=== PATIENT | male | born 1965 | race Caucasian/White ===

== ENCOUNTER 2021-11-02 14:21 | Emergency (ER) | payer OTHER, SELFPAY ==
[2021-11-02 14:23] VITALS: BP 91/48; PULSE 71; RESP 16; TEMP 37.1; O2SAT 100
--- NOTE | 2021-11-02 14:36 | ED.BACK ---
HPI - Back Pain/Injury General Chief Complaint: Back Pain/Injury Stated Complaint: back pain Time Seen by Provider: 11/02/21 14:27 History of Present Illness HPI Narrative: Patient is a 56-year-old male here for evaluation of low back pain over the past week. Patient states that the pain is present in his left lower back and will occasionally radiate down his left leg. He has a history of lumbar radiculopathy and states this feels similar. He attempted naproxen today without much relief of his symptoms, states he has not taken any medicine prior to today. He has been walking, notes pain is most severe when changing positions/movement of torso. Denies any saddle anesthesia, incontinence or retention of bowel or bladder, fevers or chills, dysuria or urgency, weakness in legs. Related Data Allergies Allergy/AdvReac Type Severity Reaction Status Date / Time No Known Allergies Allergy Unknown Unverified 02/19/07 16:48 Review of Systems Review of Systems: Gen: Denies fevers or chills Eyes: Denies eye pain or visual change ENT: Denies congestion Respiratory: Denies shortness of breath or cough CV: Denies chest pain or palpitations GI: Denies abdominal pain nausea, emesis or diarrhea : denies burning, urgency, frequency or hematuria Musculoskeletal: Reports back pain. Neuro: Denies numbness, tingling, weakness or focal weakness Skin: Denies rash Except as documented, all other systems reviewed and negative Exam Narrative: APPEARANCE: Standing at bedside. Well appearing, no pain in distress, well-nourished. Head: Normocephalic and atraumatic. EYES: PERRLA/EOMI, conjunctivae clear NOSE: No nasal drainage EARS: External ear normal in appearance THROAT: Oropharynx is clear. Mucous membranes are moist. NECK: Supple. No adenopathy, no masses. RESPIRATORY: Airway patent, respirations nonlabored. Clear to auscultation bilaterally, no rales, rhonchi, wheezing. CARDIOVASCULAR: Regular rate and rhythm without murmurs, rubs, or gallops. ABDOMINAL: Normoactive bowel sounds. Soft, nontender, nondistended. No rebound tenderness or guarding. MUSCULOSKELETAL: no tenderness to palpation along either SI joint. No bony tenderness to palpation along either hip. FROM in bilateral hips without pain. Normal gait. Straight leg raise positive on the left. NEURO: Normal speech. No focal neurologic deficits. SKIN: Skin is warm and dry. No rashes. PSYCHIATRIC: angry affect. Course Vital Signs Vital signs: Vital Signs Temperature 98.8 F 11/02/21 14:23 Pulse Rate 71 11/02/21 14:23 Respiratory Rate 16 11/02/21 14:23 Blood Pressure 91/48 L 11/02/21 14:23 Pulse Oximetry 100 11/02/21 14:23 Oxygen Delivery Room Air 11/02/21 14:23 Temperature 98.8 F 11/02/21 14:23 Pulse Rate 71 11/02/21 14:23 Respiratory Rate 16 11/02/21 14:23 Blood Pressure 91/48 L 11/02/21 14:23 Pulse Oximetry 100 11/02/21 14:23 Oxygen Delivery Room Air 11/02/21 14:23 MDM - Back Pain/Injury MDM Narrative Medical decision making narrative: 56 year old male here for evaluation of right low back pain x 1 week. Ambulatory in ED; SLR positive on the R. This patient presents with back pain most consistent with sciatica. Differential diagnoses includes lumbago versus musculoskeletal spasm / strain. No back pain red flags on history or physical. Presentation not consistent with malignancy (lack of history of malignancy, lack of B symptoms), fracture (no trauma, no bony tenderness to palpation), cauda equina (no bowel or urinary incontinence/retention, no saddle anesthesia, no distal weakness), AAA, viscus perforation, osteomyelitis or epidural abscess (no IVDU, vertebral tenderness), renal colic, pyelonephritis (afebrile, no CVAT, no urinary symptoms). Given the clinical picture, no indication for imaging at this time. He was treated with lidocaine patch, muscle relaxant and ibuprofen with improvement in his symptoms. Advised him to f/u with his PCP next wee
[2021-11-02] MEDS: IBUPROFEN 600 MG TABLET PO (15:08)
[2021-11-02] MEDS: LIDOCAINE 5% PATCH 1 PATCH TRANSDERM (15:08)
[2021-11-02] MEDS: CYCLOBENZAPRINE HCL 10 MG TABLET PO (15:09)
== END 2021-11-02 16:11 | disposition home or self-care (01) ==
PROVIDERS: Emergency Provider General Practice; PCP Family Medicine Adolescent Medicine
DX: S39.012A Strain of muscle, fascia and tendon of lower back, initial encounter (principal); X58.XXXA Exposure to other specified factors, initial encounter
CPT/HCPCS: 99283; A9270

== ENCOUNTER 2022-09-02 07:35 | Outpatient (CLI) | payer OTHER, SELFPAY ==
--- NOTE | ~2022-09-02 | US_ITS ---
US abdomen limited INDICATION: Elevated liver function tests. PROCEDURE: Realtime right upper abdominal ultrasound. COMPARISON: No prior studies for comparison. FINDINGS: The pancreas is normal without focal mass or pancreatic ductal dilation. Liver echotexture is increased, consistent with fatty infiltration. There is normal directional flow in the portal ve in. The gallbladder is normal without stones, gallbladder wall thickening or pericholecystic fluid. Comm on bile duct measures 4.5 mm. No sonographic Arthur's sign. IMPRESSION: 1: Hepatic steatosis. Reviewed, dictated and finalized at location [] IMPRESSION: 1: Hepatic steatosis.
== END 2022-09-02 07:36 | disposition home or self-care (01) ==
PROVIDERS: PCP Family Medicine Adolescent Medicine; Visit Provider Nurse Practitioner
DX: K70.0 Alcoholic fatty liver (principal); R74.8 Abnormal levels of other serum enzymes; F10.29 Alcohol dependence with unspecified alcohol-induced disorder
CPT/HCPCS: 76705

== ENCOUNTER 2022-09-13 01:44 | Day surgery (SDC) | payer OTHER, SELFPAY ==
[2022-09-06 12:33] VITALS: BMI 23.7
--- NOTE | 2022-09-12 13:18 | WPDANESEPPF ---
Anes - Initial Pre Proc Eval Procedure: Operation Date: 09/13/22 12:30 Proposed Procedures p Esophagogastroduodenoscopy & Colonoscopy - Herb Hoang MD Date/Time: 09/12/22 13:18 Surgeon: Herb Hoang MD Pre Op Diagnosis: Alcohol Use Disorder, GERD, neoplasm screening Patient Data Age: 57 Gender: M Height: 1.78 m Weight: 75 kg Allergies Allergy/AdvReac Type Severity Reaction Status Date / Time No Known Allergies Allergy Verified 09/13/22 12:12 Home Medications Medication Instructions Recorded Confirmed Type metoprolol tartrate 50 mg tablet See Rx Instructions .Route 11/12/21 09/06/22 Rx .COMPLEX #180 tabs losartan 25 mg tablet 25 mg PO DAILY #90 tabs 12/07/21 09/06/22 Rx pantoprazole 40 mg tablet,delayed 40 mg PO QAM #90 tabs 06/17/22 09/06/22 Rx release cyclobenzaprine 5 mg tablet 5 mg PO HS PRN muscle spasm #30 08/06/22 09/06/22 Rx tabs lidocaine 5 % topical patch 1 patch topical DAILY #30 ea 08/06/22 09/06/22 Rx (Lidoderm) diazepam 10 mg tablet 10 mg PO QHS PRN Sleep 09/06/22 09/06/22 History Patient hx anesthesia problems: none Family hx anesthesia problems: none Results Review: All pre-operative results and documents have been reviewed as part of the pre-operative evaluation. FORMERLY [facility] Past Medical History Medical History (Updated 09/12/22 @ 13:18 by Salvador Ellison DO) Alcoholic cardiomyopathy Alcoholic fatty liver Atrial fibrillation Colon cancer screening HTN (hypertension) Mild pulmonary hypertension Retching Surgical History Surgical History History of ankle surgery Hx of hernia repair Family History Family History Father Hypertension High cholesterol Diabetes mellitus Malignant neoplasm of prostate Mother Breast cancer Liver cancer Social History Social History Smoking status: Current every day smoker Smoking end date: 03/24/89 Alcohol intake: current Drinks per week: 15 Alcohol use details: 24 beers daily Substance use: current Substance use type: marijuana Last use: 09/06/22 Living arrangements: other Additional living arrangements comments: With partner Occupation/Education: retired Gender identity (if verbalized by the patient): Male Sexual Orientation (if Verbalized by the Patient): Straight or Heterosexual Spiritual care concerns: No Anes - Eval Final PreProcedure Day of Procedure 09/12/22 13:18 Patient weight: normal Heart: regular rate and rhythm Lungs: clear to auscultation and normal air movement Airway: Mallampati scale class II Neurological: alert and oriented Last oral intake: >/= 8 hours ASA classification: IV Emergent: no Anesthetic plan: delay (cancelled due to acute alcohol withdrawal. Discussed patient should have alcohol withdrawal under control before elective procedure. Advised admission to hospital to help with withdrawals) Anesthesia type and monitoring: general GIVS and ETT and standard monitoring Results Review: All pre-operative results and documents have been reviewed as part of the pre-operative evaluation. Informed Consent: The patient's anesthetic plan and its attendant risks and benefits were discussed with the patient/family/POA. Questions were solicited and answers provided to the satisfaction of the patient/family/POA.
[2022-09-13 12:15] VITALS: BP 183/105; PULSE 94; RESP 18; TEMP 36.3; O2SAT 100
[2022-09-13] MEDS: ONDANSETRON INJ 4 MG/2 ML VIAL IV PUSH (12:27)
[2022-09-13] MEDS: FAMOTIDINE 20 MG/2 ML VIAL IV PUSH (12:28)
[2022-09-13] MEDS: LACTATED RINGERS 1,000 ML 150 ML IV CONT (12:33)
--- NOTE | 2022-09-13 12:47 | SUR.PREOP ---
Patient into pre-op with complaints of N/V and tremors of the hands. Patient does admit to drinking 15 beers per day. Anesthesia made aware. Dr. Ellison to bedside.
[2022-09-13 13:12] LABS: Anion Gap 10 mmol/L (8-16); Blood Urea Nitrogen 7 mg/dL (9-20); Calcium 9.6 mg/dL (8.4-10.2); Carbon Dioxide 30 mmol/L (22-30); Chloride 93 mmol/L (98-107); Estimated CRCL calculation 113 ml/min; Estimated Glomerular Filt Rate > 60; Glucose 124 mg/dL (65-110); Potassium 3.9 mmol/L (3.4-5.0); Sodium 133 mmol/L (137-145)
--- NOTE | 2022-09-13 13:59 | SUR.PREOP ---
Per Dr. Barajas and Dr. Ellison, cancel patient for procedures today due to withdraws. Per patient request, will take patient to ED to be evaluated and admitted to hospital. Provided patient with informational resource package for alcoholism. Per power house engineer, okay to leave IV in place and transfer patient to triage in ED.
== END 2022-09-13 14:00 | disposition home or self-care (01) ==
PROVIDERS: Anesthesiology; PCP Family Medicine Adolescent Medicine; Visit Provider Internal Medicine Gastroenterology
PROC: 0DJ08ZZ Inspection of Upper Intestinal Tract, Via Natural or Artificial Opening Endoscopic (ICD-10-PCS; CPT 43235; principal; 2022-09-13 12:30)
DX: Z12.11 Encounter for screening for malignant neoplasm of colon (principal); Z53.8 Procedure and treatment not carried out for other reasons; F10.939 Alcohol use, unspecified with withdrawal, unspecified; K21.9 Gastro-esophageal reflux disease without esophagitis; I10 Essential (primary) hypertension; Z87.891 Personal history of nicotine dependence
CPT/HCPCS: 36415; 80048; 99215; G0463; J2405; J7120

== ENCOUNTER 2022-09-13 13:50 | Observation (INO) | payer OTHER, SELFPAY ==
[2022-09-13] VITALS (20 sets, daily range): BP systolic 136–185; BP diastolic 81–130; PULSE 67–96; RESP 14–27; TEMP 35.8–36.7; O2SAT 92–100; BMI 23.1
--- NOTE | 2022-09-13 14:35 | ED.ALCOHOL ---
HPI - Alcohol General Chief Complaint: Alcohol <Kristen Lerma, LIDDING MACHINE OPERATOR - Last Filed: 09/13/22 17:26> Stated Complaint: etoh withdrawal <Kristen Lerma LIDDING MACHINE OPERATOR - Last Filed: 09/13/22 17:26> Time Seen by Provider: 09/13/22 14:20 <Kristen Lerma LIDDING MACHINE OPERATOR - Last Filed: 09/13/22 17:26> History of Present Illness HPI narrative: 57-year-old male presents to the emergency room today for concerns about alcohol withdrawal. He was scheduled for colonoscopy today but was sent to the ER because he is having tremors. He normally drinks about 15 beers per day. He admits to long-term daily alcohol use. He reports that his last alcohol intake was yesterday afternoon. He does report that he feels shaky but also says that this could be because he has not had any food intake since yesterday. He denies having any auditory or visual hallucinations. He does feel mildly anxious. He feels sweaty to his head. Denies any paresthesias. Blood pressure is noted to be elevated. He did not take his normal blood pressure medications this morning. <Kristen Lerma, LIDDING MACHINE OPERATOR - Last Filed: 09/13/22 17:26> Related Data Home Medications: Home Medications Medication Instructions Recorded Confirmed diazepam 10 mg tablet 10 mg PO QHS PRN Sleep 09/06/22 09/06/22 <Kristen Lerma, LIDDING MACHINE OPERATOR - Last Filed: 09/13/22 17:26> Allergies/Adverse Reactions: Allergies Allergy/AdvReac Type Severity Reaction Status Date / Time No Known Allergies Allergy Verified 09/13/22 12:12 <Kristen Lerma LIDDING MACHINE OPERATOR - Last Filed: 09/13/22 17:26> Review of Systems Review of Systems: CONSTITUTIONAL: Denies fever, chills, or sweats. EYES: Denies visual changes, redness, or discharge. ENT: Denies rhinorrhea, congestion, sore throat, or otalgia. CARDIOVASCULAR: Denies chest pain, palpitations, or edema. RESPIRATORY: Denies cough or dyspnea. GASTROINTESTINAL: Denies abdominal pain, nausea, vomiting, or diarrhea. Has hiccups GENITOURINARY: Denies dysuria or hematuria. SKIN: Denies rash or itching. MUSCULOSKELETAL: Denies back pain, joint pain, or myalgia. NEUROLOGIC: as per HPI PSYCHIATRIC: Denies anxiety or depression. <Kristen Lerma APRN - Last Filed: 09/13/22 17:26> PMFSH Past Medical History Medical History: Medical History Alcoholic cardiomyopathy Alcoholic fatty liver Atrial fibrillation Colon cancer screening HTN (hypertension) Mild pulmonary hypertension Retching <Kristen Lerma APRN - Last Filed: 09/13/22 17:26> Surgical History Surgical History: Surgical History History of ankle surgery Hx of hernia repair <Kristen Lerma APRN - Last Filed: 09/13/22 17:26> Family History Family History: Family History Father Hypertension High cholesterol Diabetes mellitus Malignant neoplasm of prostate Mother Breast cancer Liver cancer <Kristen Lerma APRN - Last Filed: 09/13/22 17:26> Social History Social History: Social History Smoking status: Current every day smoker Smoking end date: 03/24/89 Alcohol intake: current Drinks per week: 15 Alcohol use details: 24 beers daily Substance use: current Substance use type: marijuana Last use: 09/06/22 Living arrangements: other Additional living arrangements comments: With partner Occupation/Education: retired Gender identity (if verbalized by the patient): Male Sexual Orientation (if Verbalized by the Patient): Straight or Heterosexual Spiritual care concerns: No <Kristen Lerma APRN - Last Filed: 09/13/22 17:26> Exam Narrative: GENERAL: Well-appearing, well-nourished, and in no acute distress. HEAD: Normocephalic, atraumatic. EYES: PERRL and EOMI. NECK: Suppl
[2022-09-13] MEDS: LORazepam INJ (*CRX) 2 MG/ML VIAL 1 MG IV PUSH (14:50)
[2022-09-13] MEDS: ONDANSETRON INJ 4 MG/2 ML VIAL IV PUSH (14:51)
[2022-09-13] MEDS: SODIUM CHLORIDE 0.9% IV 1,000 ML 999 ML IV CONT (14:52)
[2022-09-13] MEDS: METOPROLOL TARTRATE 50 MG TAB PO (14:52)
[2022-09-13 15:01] LABS: Basophils Percent Auto 0.5 % (0.2-1.2); Hemoglobin 13.7 g/dL (14.0-18.0); Immature Granulocyte Absolute 0.01 K/mm3 (0.00-0.031); Immature Granulocyte Percent A 0.3 % (0-0.5); Immature Platelet Fraction Pct 4.8 % (0.9-11.2); Lymphocytes Absolute Auto 0.59 K/mm3 (0.9-3.2); Lymphocytes Percent Auto 14.9 % (18.3-44.2); Mean Corpuscular HGB Conc 35.1 g/dl (32-36); Mean Corpuscular Hemoglobin 38.4 pg (26-34); Mean Corpuscular Volume 109.2 fl (80-100); Mean Platelet Volume 9.8 fl (7.4-10.4); Monocytes Absolute Auto 0.5 K/mm3 (0.1-0.6); Monocytes Percent Auto 13.1 % (2.6-8.5); Neutrophils Absolute Auto 2.8 K/mm3 (1.3-6.7); Neutrophils Percent Auto 71.2 % (45.5-73.1); Platelet Count Result 105 k/mm3 (150-375); Red Blood Count 3.57 M/mm3 (4.6-6.20); Red Cell Distribution Width 11.7 % (11.5-14.5)
[2022-09-13 15:09] LABS: Ethanol < 10 mg/dL (<10)
[2022-09-13 15:10] LABS: Alanine Aminotransferase 56 U/L (6-50); Albumin Level 4.7 g/dL (3.5-5.1); Alkaline Phosphatase 116 U/L (38-126); Anion Gap 8 mmol/L (8-16); Aspartate Amino Transferase 108 U/L (17-59); Bilirubin,Total 1.9 mg/dL (0.2-1.3); Blood Urea Nitrogen 7 mg/dL (9-20); Calcium 9.6 mg/dL (8.4-10.2); Carbon Dioxide 32 mmol/L (22-30); Chloride 92 mmol/L (98-107); Estimated Glomerular Filt Rate > 60; Glucose 110 mg/dL (65-110); Magnesium 1.7 mg/dL (1.6-2.3); Phosphorus 4.7 mg/dL (2.5-4.5); Potassium 4.1 mmol/L (3.4-5.0); Sodium 132 mmol/L (137-145)
[2022-09-13 15:24] LABS: Anisocytosis 1+ (NORMAL)
[2022-09-13 15:25] LABS: Schistocytes None Seen (NORMAL)
[2022-09-13] MEDS: LOSARTAN POTASSIUM 25 MG TABLET PO (16:03)
[2022-09-13] MEDS: PANTOPRAZOLE 40 MG TABLET PO (16:03)
[2022-09-13] MEDS: LORazepam INJ (*CRX) 2 MG/ML VIAL IV PUSH (16:03)
--- NOTE | 2022-09-13 18:20 | ADMGEN ---
This patient, Patrick Jordan, was admitted to [facility] Surg Room 314-01 at 1810. Patient/family oriented to hospital policies and general routines including ID bracelet, bed and alarms, visiting hours, pain management, procedures, bathroom and other care routines, personal items, smoking policy, room service/diet, and visiting hours. Information on how to activate the Rapid Response Team has been discussed. Patient/Family are encouraged to report perceived risks to care and to ask questions if they do not understand what they are told or what they should do.
[2022-09-13] MEDS: chlordiazePOXIDE (*CRX) 25 MG CAPSULE PO (22:06)
[2022-09-14] VITALS (9 sets, daily range): BP systolic 136–181; BP diastolic 89–112; PULSE 73–87; RESP 16–20; TEMP 36–36.7; O2SAT 99–100
--- NOTE | 2022-09-14 00:10 | PM.IMHP ---
H&P: HPI History of Present Illness Date/Time: 09/13/22 19:00 Chief Complaint: Alcohol withdrawal. Narrative: This is a 57-year-old male with longstanding history of alcoholism (30 beers a day, usually cannot go more than 4 hours between drinks), chronic atrial fibrillation deemed not to be an appropriate candidate for anticoagulation, hypertension, alcoholic fatty liver, and alcoholic cardiomyopathy who presented to the emergency department from the endoscopy lab with concerns of alcohol withdrawal. The patient provides the following history. His domestic partner, Indira, provides additional information with the patient's permission. He was scheduled for upper and lower endoscopies today per Dr. Hoang for evaluation of longstanding but intermittent dysphagia, nausea, and vomiting in addition to screening colonoscopy. He had his last drink early afternoon yesterday and he completed bowel prep thereafter. He was tremulous on arrival to the endoscopy suite and the anesthesiologist did not feel comfortable sedating him for an elective procedure with findings of alcohol withdrawal. He was sent to the ER for evaluation and his CIWA score was above 15 on arrival for which he was given a total of lorazepam 3 mg IV with improvement in his symptoms. The patient has no intention to quit drinking alcohol however he would prefer to stay in the hospital over the weekend for monitored withdrawal and ?detox? with plans for upper and lower endoscopies on Friday. At the time my evaluation he is feeling better and has mild tremors of the hands. He denies current sweats, anxiety, nausea, vomiting, abdominal pain, and hallucinations. He has no history of alcohol withdrawal seizure. Review of Systems Review of Systems: Twelve systems were reviewed. No fever. No recent cold or flu symptoms. Denies chest pain shortness a breath. No cough. He has frequent nausea, vomiting, and dry heaves. No hematemesis, melena, or hematochezia. Except as documented, all other systems were reviewed and are negative. FOR[facility]LY [facility] Past Medical History Medical History (Updated 09/14/22 @ 00:31 by Alyssa River PA-C) Alcoholic cardiomyopathy Diagnosised at [place] years ago. Now followed by Dr. Pacheco. Alcoholic fatty liver Atrial fibrillation Deemed to not be a candidate for anticoagulation. Hypertension Mild pulmonary hypertension Nicotine dependence Surgical History Surgical History (Updated 09/14/22 @ 00:12 by Alyssa River PA-C) History of open reduction and internal fixation (ORIF) procedure Repair of right ankle fracture. History of ventral hernia repair (01/2007) Family History Family History Father Hypertension High cholesterol Diabetes mellitus Malignant neoplasm of prostate Mother Breast cancer Liver cancer Social History Social History (Updated 09/14/22 @ 00:21 by Alyssa River PA-C) Social History: Surrogate medical decision maker: Indira Balderaso, domestic partner. Code status: Full code. Smoking status: Current every day smoker Alcohol intake: current Drinks per week: 210 Alcohol use details: 24 to 30 beers a day. Substance use: current Substance use type: marijuana Last use: 09/06/22 Lack of Transportation: YES Lack of Food: Never True Current Housing: I Have Housing Concerned About Future Housing: No Difficulty Paying Gas/Electric Bills: No Difficulty Paying for Meds: No Currently Unemployed: No Education: Bachelor's Degree Difficulty w/ Childcare or Family Care: No Living arrangements: other Additional living arrangements comments: Lives with significant other in [place]. Occupation/Education: retired Spiritual care concerns: No Meds Home Medications and Allergies Home Medications Medication Instructions Recorded Confirmed Type metoprolol tartrate 50 mg tablet See Rx Instructions .Route 11/12/2109/13
[2022-09-14] MEDS: chlordiazePOXIDE (*CRX) 25 MG CAPSULE PO ×4 (00:21→17:10)
[2022-09-14] MEDS: METOPROLOL TARTRATE 50 MG TAB BY MOUTH ×2 (00:21→08:32)
[2022-09-14 01:24] LABS: Immature Reticulocyte Fraction 4.4 % (3.0-15.9); Reticulocyte Hemoglobin Conten 39.9 pg (28.2-35.7); Reticulocyte Percent 1.71 % (0.7-4.3); Reticulocytes Absolute 0.06 M/mm3 (0.02-0.1)
[2022-09-14 02:29] LABS: Iron 182 ug/dL (49-181)
[2022-09-14 02:38] LABS: Percent Iron Saturation 69 % (20-50)
[2022-09-14 03:44] LABS: Folic Acid 11.2 ng/mL (2.76->20)
[2022-09-14] MEDS: LORazepam (*CRX) 1 MG TABLET (05:18)
[2022-09-14 07:09] LABS: Hematocrit 36.1 % (42.0-52.0); Hemoglobin 12.5 g/dL (14.0-18.0); Immature Platelet Fraction Pct 6.1 % (0.9-11.2); Mean Corpuscular HGB Conc 34.6 g/dl (32-36); Mean Corpuscular Hemoglobin 37.4 pg (26-34); Mean Corpuscular Volume 108.1 fl (80-100); Mean Platelet Volume 9.7 fl (7.4-10.4); Platelet Count Result 88 k/mm3 (150-375); Red Blood Count 3.34 M/mm3 (4.6-6.20); Red Cell Distribution Width 11.3 % (11.5-14.5); White Blood Count 2.7 K/mm3 (4.5-10.0)
[2022-09-14 07:18] LABS: Alanine Aminotransferase 45 U/L (6-50); Alkaline Phosphatase 97 U/L (38-126); Anion Gap 4 mmol/L (8-16); Aspartate Amino Transferase 83 U/L (17-59); Bilirubin,Total 2.2 mg/dL (0.2-1.3); Blood Urea Nitrogen 8 mg/dL (9-20); Calcium 9.3 mg/dL (8.4-10.2); Carbon Dioxide 35 mmol/L (22-30); Chloride 91 mmol/L (98-107); Estimated CRCL calculation 105 ml/min; Estimated Glomerular Filt Rate > 60; Glucose 97 mg/dL (65-110); Potassium 3.6 mmol/L (3.4-5.0); Sodium 130 mmol/L (137-145)
[2022-09-14 07:36] LABS: Prothrombin Time 13.9 Seconds (11.1-14.7)
[2022-09-14 07:39] LABS: Partial Thromboplastin Time 28.7 SECONDS (22.3-36.8)
[2022-09-14] MEDS: LORazepam (*CRX) 1 MG TABLET PO ×3 (08:31→17:10)
[2022-09-14] MEDS: FOLIC ACID 1 MG TABLET PO (08:32)
[2022-09-14] MEDS: THIAMINE HCL 100 MG TABLET PO (08:32)
[2022-09-14] MEDS: PANTOPRAZOLE 40 MG TABLET PO (08:33)
[2022-09-14] MEDS: LOSARTAN POTASSIUM 25 MG TABLET PO (08:34)
--- NOTE | 2022-09-14 14:05 | PM.IMPN ---
Progress Note: A&P Assessment and Plan (1) Alcohol withdrawal syndrome: Code(s): F10.939 - Alcohol use, unspecified with withdrawal, unspecified Status: Acute Assessment and Plan: Continue Librium 25 mg PO skew 6 hours and p.r.n. Ativan per [facility] protocol Continue thiamin and folic acid (2) Macrocytic anemia: Code(s): D53.9 - Nutritional anemia, unspecified Status: Acute Assessment and Plan: With pancytopenia consistent with marrow suppression by alcohol possible splenic sequestration B12 and folate unremarkable (3) Alcoholic fatty liver: Code(s): K70.0 - Alcoholic fatty liver Status: Acute Assessment and Plan: Discussed need for discontinuation of alcohol intake (4) Hypertension: Qualifiers: Hypertension type: unspecified Qualified Code(s): I10 - Essential (primary) hypertension Code(s): I10 - Essential (primary) hypertension Status: Acute Assessment and Plan: Continue home antihypertensive regimen (5) Alcoholic cardiomyopathy: Code(s): I42.6 - Alcoholic cardiomyopathy Status: Acute Assessment and Plan: Followed by cardiology Continue telemetry (6) Nicotine dependence: Qualifiers: Nicotine product type: unspecified Substance use status: unspecified nicotine-induced disorder Qualified Code(s): F17.209 - Nicotine dependence, unspecified, with unspecified nicotine-induced disorders Code(s): F17.200 - Nicotine dependence, unspecified, uncomplicated Status: Acute Assessment and Plan: Aware of need to quit Subjective Date/time seen: 09/14/22 14:05 Interval history: Mildly tremulous. Tolerating diet. Denied history of seizures or DTs. Denied chest pain or shortness of breath. Denied GI or upset. Denied abnormal bleeding including blood in stool or urine. Denied focal weakness or numbness. Review of Systems Review of Systems: All systems reviewed & are unremarkable except as noted in HPI and below Exam Narrative: HEENT: PERRL, sclerae nonicteric, pharyngeal mucosa pink and intact NECK: No JVD CHEST: Clear to auscultation. Normal effort. HEART: NL S1/S2, regular, no murmur ABDOMEN: BS+, soft, nontender, no mass, no bruits EXTREMITIES: No cyanosis, edema, or clubbing NEUROLOGIC: CN intact and symmetric to inspection. MUSCULOSKELETAL: Tone and strength symmetric. PSYCH: [place] middle-aged gentleman who is alert and oriented to person place and time. Objective Data Vital Signs Vital Signs: Vital Signs - 24 hr 09/13/22 14:52 09/13/22 14:17 09/13/22 14:32 Temperature Pulse Rate 96 95 92 Respiratory Rate 27 H 21 H Blood Pressure 184/130 H 185/104 H Pulse Oximetry 98 97 Oxygen Delivery 09/13/22 15:43 09/13/22 15:46 09/13/22 16:01 Temperature Pulse Rate 89 78 Respiratory Rate 17 20 Blood Pressure 161/106 H 159/107 H 153/103 H Pulse Oximetry 100 92 Oxygen Delivery 09/13/22 16:02 09/13/22 16:15 09/13/22 16:16 Temperature Pulse Rate 73 87 76 Respiratory Rate 16 14 18 Blood Pressure 145/98 H Pulse Oximetry 99 Oxygen Delivery 09/13/22 16:30 09/13/22 16:32 09/13/22 16:45 Temperature Pulse Rate 77 87 87 Respiratory Rate 22 H 20 17 Blood Pressure 172/98 H Pulse Oximetry Oxygen Delivery 09/13/22 17:00 09/13/22 17:02 09/13/22 17:15 Temperature Pulse Rate 86 Respiratory Rate 25 H 21 H 18 Blood Pressure 176/115 H Pulse Oximetry Oxygen Delivery 09/13/22 18:42 09/13/22 18:59 09/13/22 21:21 Temperature 96.5 F L 98.0 F Pulse Rate 85 67 Respiratory Rate 18 20 Blood Pressure 153/112 H 141/81 H Pulse Oximetry 100 100 Oxygen Delivery Room Air 09/13/22 23:43 09/14/22 00:57 09/13/22 20:00 Temperature 98.1 F Pulse Rate 82 87 Respiratory Rate 20 Blood Pressure 136/89 Pulse Oximetry 99 99 Oxygen Delivery 09/13/22 20:00 09/13/22 20:00 09/14/22 00
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
--- NOTE | 2022-09-17 09:13 | PM.DS ---
DS: Admitting Diagnosis Discharge Date 09/14/22 Admitting Diagnosis Alcohol withdrawal DS: Discharge Diagnosis Discharge Diagnosis (1) Alcohol withdrawal syndrome: Code(s): F10.939 - Alcohol use, unspecified with withdrawal, unspecified Status: Acute Assessment and Plan: Continue Librium 25 mg PO skew 6 hours and p.r.n. Ativan per [facility] protocol Continued thiamin and folic acid (2) Macrocytic anemia: Code(s): D53.9 - Nutritional anemia, unspecified Status: Acute Assessment and Plan: With pancytopenia consistent with marrow suppression by alcohol possible splenic sequestration B12 and folate unremarkable (3) Alcoholic fatty liver: Code(s): K70.0 - Alcoholic fatty liver Status: Acute Assessment and Plan: Discussed need for discontinuation of alcohol intake (4) Hypertension: Qualifiers: Hypertension type: unspecified Qualified Code(s): I10 - Essential (primary) hypertension Code(s): I10 - Essential (primary) hypertension Status: Acute Assessment and Plan: Continue home antihypertensive regimen (5) Alcoholic cardiomyopathy: Code(s): I42.6 - Alcoholic cardiomyopathy Status: Acute Assessment and Plan: Followed by cardiology Continue telemetry (6) Nicotine dependence: Qualifiers: Nicotine product type: unspecified Substance use status: unspecified nicotine-induced disorder Qualified Code(s): F17.209 - Nicotine dependence, unspecified, with unspecified nicotine-induced disorders Code(s): F17.200 - Nicotine dependence, unspecified, uncomplicated Status: Acute Assessment and Plan: Aware of need to quit DS: Summary Hospital Course Reason for hospitalization: Alcohol withdrawal Hospital Course: Gentleman was to have upper endoscopy due to dysphagia. However anesthesia noted he was having signs and symptoms of alcohol withdrawal. He was admitted to the inpatient service where he was treated with p.o. Librium and p.r.n. Ativan as well as folic acid and thiamine. His symptoms well controlled. Unfortunately a friend brought alcohol to his room. He became inebriated. He tried to walk out wearing nothing but a hospital gown. The patient at dressed and was able to ambulate out of the hospital under his own power. He left against medical advice. No discharge plan or medications were provided due to his leaving against medical advice. Time Spent with Patient Time attestation: Total time spent providing and/or coordinating discharge services: Exam Narrative: HEENT: PERRL, sclerae nonicteric, pharyngeal mucosa pink and intact NECK: No JVD CHEST: Clear to auscultation. Normal effort. HEART: NL S1/S2, regular, no murmur ABDOMEN: BS+, soft, nontender, no mass, no bruits EXTREMITIES: No cyanosis, edema, or clubbing NEUROLOGIC: CN intact and symmetric to inspection. MUSCULOSKELETAL: Tone and strength symmetric. PSYCH: [place] middle-aged gentleman who is alert and oriented to person place and time. Discharge Plan Discharge Consulting providers: Alyssa River Discharging Clinician: Grzegorz Kyle Patient Disposition: Left Against Medical Advice Activity: other - see discharge instructions Diet: other - see discharge instructions Discharge Instructions: No discharge instructions were provided due to the patient leaving against medical advice. Patient Instructions: How to Stop Smoking (DC) Discharge Medications: Continued cyclobenzaprine 5 mg tablet 5 mg PO HS PRN (Reason: muscle spasm) Qty: 30 0RF lidocaine [Lidoderm] 5 % adhesive patch,medicated 1 patch topical DAILY PRN (Reason: Pain (Scale Score 1-3)) Rx Instructions: leave on most painful area for up to 12 hrs diazepam 10 mg tablet 10 mg PO QHS PRN (Reason: Sleep) metoprolol tartrate 50 mg tablet See Rx Instructions .ROUTE .COMPLEX Qty: 180 0RF Dose Instructio
== END 2022-09-14 19:08 | disposition left against medical advice (07) ==
LOC: ANHED 17:26 → ANH3MEDSUR 19:00
PROVIDERS: Physician Assistant; Admitting Provider Family Medicine; Emergency Provider Nurse Practitioner Family; PCP Family Medicine Adolescent Medicine; Visit Provider Internal Medicine
DX: F10.239 Alcohol dependence with withdrawal, unspecified (principal); Y90.0 Blood alcohol level of less than 20 mg/100 ml; D53.9 Nutritional anemia, unspecified; K70.0 Alcoholic fatty liver; I42.6 Alcoholic cardiomyopathy; I48.91 Unspecified atrial fibrillation; R13.10 Dysphagia, unspecified; I10 Essential (primary) hypertension; I27.20 Pulmonary hypertension, unspecified; Z82.49 Family history of ischemic heart disease and other diseases of the circulatory system; F17.210 Nicotine dependence, cigarettes, uncomplicated; F12.90 Cannabis use, unspecified, uncomplicated; Z79.899 Other long term (current) drug therapy
CPT/HCPCS: 36415; 80048; 80053; 80307; 82607; 82728; 82746; 83540; 83550; 83735; 84100; 84443; 85025; 85027; 85046; 85055; 85610; 85730; 96361; 96374; 96375; 96376; 99215; 99285; A9270; G0378; G0379; G0463; J2060; J2405; J7030; J7120

== ENCOUNTER 2022-11-09 09:53 | Inpatient (IN) | payer OTHER, SELFPAY ==
[2022-11-09] VITALS (38 sets, daily range): BP systolic 95–197; BP diastolic 64–174; PULSE 65–87; RESP 14–28; TEMP 36.2–37.1; O2SAT 97–100; BMI 24.5
--- NOTE | ~2022-11-09 | CT_ITS ---
EXAMINATION: CT chest abdomen pelvis w con DATE: 11/09/2022 13:39 INDICATION: Abdominal pain. Weight loss. TECHNIQUE: Computed tomography (CT) of the chest, abdomen, and pelvis was performed with 100 mL Omnip aque 350 intravenous contrast. Automated exposure control and iterative reconstruction technique were employed. The dose-length product was 832.47 mGy-cm. COMPARISON: None FINDINGS: CHEST CT: There is mild scarring at the lung apices. There is mild atelectasis bilaterally. There are centrilob ular nodules in lingula and right upper lobe. No pleural effusion. There is biatrial enlargement of t he heart. There are coronary artery calcifications. No pericardial effusion. There is mild thoracic s pondylosis. There is mild chronic anterior wedging of multiple vertebral bodies. ABDOMEN/PELVIS CT: The liver, spleen, gallbladder, pancreas, and adrenal glands are normal. There is focal cortical thin wandy of right kidney. There is a 3 mm stone in left kidney. There are bilateral inguinal hernias cont aining fat. There is diverticulosis of the colon without evidence of diverticulitis. The appendix is normal. There is mild aortic atherosclerosis. There are no pathologically enlarged lymph nodes. There is no free intraperitoneal fluid. There is moderate lumbar spondylosis. IMPRESSION: 1. Centrilobular nodules in lingula and right upper lobe, likely mild infection. 2. Bilateral inguinal hernias containing fat. Reviewed, dictated and finalized at location A. IMPRESSION: 1. Centrilobular nodules in lingula and right upper lobe, likely mild infection . 2. Bilateral inguinal hernias containing fat.
--- NOTE | ~2022-11-09 | CT_ITS ---
EXAMINATION: CT brain wo con DATE: 11/09/2022 13:39 INDICATION: Altered mental status. TECHNIQUE: Computed tomography (CT) of the head was performed without intravenous contrast. The mA wa s adjusted according to patient size. Iterative reconstruction technique was employed. The dose-lengt h product was 605.33 mGy-cm. COMPARISON: Head CT 01/03/2014 FINDINGS: There is an old infarct in right temporal occipital region in the expected distribution of right posterior cerebral artery. There is no intracranial hemorrhage, acute infarction, or abnormal i ntracranial mass lesion. There is ex vacuo dilatation of temporal horn of right lateral ventricle. Th ere is mucosal thickening in the paranasal sinuses. The orbits are normal. The mastoid air cells are normal. IMPRESSION: 1. Old infarct in right temporal occipital region. Reviewed, dictated and finalized at location A.
[2022-11-09] MEDS: SODIUM CHLORIDE 0.9% IV 1,000 ML 999 ML IV CONT ×2 (10:45→13:51)
--- NOTE | 2022-11-09 12:23 | ED.ALCOHOL ---
HPI - Alcohol General Chief Complaint: Alcohol Stated Complaint: AMS Time Seen by Provider: 11/09/22 12:00 History of Present Illness HPI narrative: 57-year-old male presented the emergency department for evaluation of hiccups, weight loss and altered mental status. Patient is a daily drinker of beer and is here with his domestic partner. She states that the patient has had increased weight loss over the last year and only drinks beer and does not eat food. She reports that last night he was out riding his bike got lost and ended up being brought home by the police. Patient has no prior history of CVA and denies any prior history of alcohol withdrawal seizures. Related Data Home Medications Medication Instructions Recorded Confirmed diazepam 10 mg tablet 10 mg PO QHS PRN Sleep 09/06/22 11/09/22 metoprolol succinate 100 mg 100 mg PO DAILY 11/09/22 11/09/22 tablet,extended release 24 hr multivit with min-folic 1 tablet PO DAILY 11/09/22 11/09/22 acid-lutein 200 mcg-137.5 mcg chewable tablet (Adult Multivitamin (w-lutein)) Allergies Allergy/AdvReac Type Severity Reaction Status Date / Time No Known Allergies Allergy Verified 09/13/22 12:12 Review of Systems Review of Systems: All systems reviewed & are unremarkable except as noted in HPI and below PMFSH Past Medical History Medical History (Updated 11/09/22 @ 20:25 by Devante Majano MD) Alcoholic cardiomyopathy Diagnosised at [place] years ago. Now followed by Dr. Pacheco. Alcoholic fatty liver Atrial fibrillation Deemed to not be a candidate for anticoagulation. Hypertension Mild pulmonary hypertension Nicotine dependence Surgical History Surgical History (Updated 09/14/22 @ 00:12 by Alyssa River PA-C) History of open reduction and internal fixation (ORIF) procedure Repair of right ankle fracture. History of ventral hernia repair (01/2007) Family History Family History Father Hypertension High cholesterol Diabetes mellitus Malignant neoplasm of prostate Mother Breast cancer Liver cancer Social History Social History (Updated 09/14/22 @ 00:21 by Alyssa River PA-C) Social History: Surrogate medical decision maker: Indira Davies, domestic partner. Code status: Full code. Smoking packs per day: 1 Smoking cigarettes per day: 20.0 Years smoked: 15 Smoking pack-years: 15.00 Smoking status: Former smoker Tobacco type: cigarettes Smoking end date: 03/24/82 Alcohol intake: current Drinks per week: 140 Alcohol use details: 24 to 30 beers a day. Substance use: current Substance use type: marijuana Last use: 11/08/22 Lack of Transportation: No Lack of Food: Never True Current Housing: I Have Housing Concerned About Future Housing: No Difficulty Paying Gas/Electric Bills: No Difficulty Paying for Meds: No Currently Unemployed: No Education: Bachelor's Degree Difficulty w/ Childcare or Family Care: No Living arrangements: other Additional living arrangements comments: Lives with significant other in [place]. Occupation/Education: retired Spiritual care concerns: No Exam Narrative: APPEARANCE: Well appearing, no pain, no distress, well-nourished. HEAD: normocephalic, atraumatic. EYES: PERRLA/EOMI, conjunctivae clear. NOSE: Normal no drainage EARS:TMS clear with good light reflex. THROAT: Pharynx clear, no exudate. NECK: Supple. No adenopathy, no masses. RESPIRATORY: Airway patent, respirations nonlabored. Clear to auscultation bilaterally, no rales, rhonchi, wheezing. CARDIOVASCULAR: Regular rate and rhythm without murmurs rubs or gallops. ABDOMINAL: Soft, nontender, nondistended, normal bowel sounds MUSCULOSKELETAL: Moves all extremities. Strength/ROM intact, No edema, No calf tenderness. NEURO: Alert. Cranial nerves II through XII intact. Grossly intact SKIN: Warm, dry. Normal Color Cou
[2022-11-09] MEDS: THIAMINE HCL 200 MG/2 ML VIAL 100 MG IV PUSH (12:47)
[2022-11-09 12:59] LABS: Basophils Percent Auto 0.6 % (0.2-1.2); Eosinophils Percent Auto 0.6 % (0-4.4); Hematocrit 37.2 % (42.0-52.0); Hemoglobin 13.2 g/dL (14.0-18.0); Immature Granulocyte Absolute 0.02 K/mm3 (0.00-0.031); Immature Granulocyte Percent A 0.6 % (0-0.5); Lymphocytes Absolute Auto 0.82 K/mm3 (0.9-3.2); Lymphocytes Percent Auto 23.2 % (18.3-44.2); Mean Corpuscular HGB Conc 35.5 g/dl (32-36); Mean Corpuscular Hemoglobin 37.1 pg (26-34); Mean Corpuscular Volume 104.5 fl (80-100); Mean Platelet Volume 8.4 fl (7.4-10.4); Monocytes Absolute Auto 0.2 K/mm3 (0.1-0.6); Monocytes Percent Auto 6.2 % (2.6-8.5); Neutrophils Absolute Auto 2.4 K/mm3 (1.3-6.7); Neutrophils Percent Auto 68.8 % (45.5-73.1); Platelet Count Result 155 k/mm3 (150-375); Red Blood Count 3.56 M/mm3 (4.6-6.20); Red Cell Distribution Width 11.3 % (11.5-14.5); White Blood Count 3.5 K/mm3 (4.5-10.0)
[2022-11-09 13:09] LABS: INR 0.9; Prothrombin Time 12.7 Seconds (11.1-14.7)
[2022-11-09 13:10] LABS: Partial Thromboplastin Time 27.3 SECONDS (22.3-36.8)
[2022-11-09 13:18] LABS: Lactic Acid Reflex 0.6 mmol/L (0.7-2.0); Magnesium 1.6 mg/dL (1.6-2.3)
[2022-11-09 13:19] LABS: Alanine Aminotransferase 44 U/L (6-50); Albumin Level 4.1 g/dL (3.5-5.1); Alkaline Phosphatase 99 U/L (38-126); Anion Gap 7 mmol/L (8-16); Aspartate Amino Transferase 62 U/L (17-59); Bilirubin,Total 0.7 mg/dL (0.2-1.3); Blood Urea Nitrogen 6 mg/dL (9-20); Calcium 8.9 mg/dL (8.4-10.2); Carbon Dioxide 35 mmol/L (22-30); Chloride 91 mmol/L (98-107); Estimated CRCL calculation 99 ml/min; Estimated Glomerular Filt Rate > 60; Glucose 99 mg/dL (65-110); Lipase 72 U/L (23-300); Potassium 2.9 mmol/L (3.4-5.0); Sodium 133 mmol/L (137-145)
[2022-11-09 13:23] LABS: Appearance Urine Clear (Clear); Bilirubin Urine Negative (Negative); Blood Urine Negative (Negative); Color Urine Yellow (Yellow); Glucose Urine UA Negative (Negative); Ketones Urine Negative (Negative); Leukocyte Esterase Ur Negative LEU/UL (Negative); Nitrate Urine Negative (Negative); Protein Urine Negative (Negative); Specific Grav Ur 1.003 (1.001-1.035); Urobilinogen Urine 0.2 mg/dL (<2.0)
[2022-11-09 13:25] LABS: Add Urine Microscopic? NO
[2022-11-09] MEDS: POTASSIUM CHLORIDE 20 MEQ PACKET (FOR LIQUID) 40 MEQ PO (13:49)
[2022-11-09 14:15] LABS: Ethanol < 10 mg/dL (<10)
[2022-11-09] MEDS: LORazepam INJ (*CRX) 2 MG/ML VIAL IV PUSH (14:24)
[2022-11-09 16:21] LABS: Ammonia 13 umol/L (9-30)
[2022-11-09] MEDS: AZITHROMYCIN 500 MG/NS 250 ML 500 MG/250 ML BAG 250 MG IVPB (17:35)
--- NOTE | 2022-11-09 18:14 | ADMGEN ---
This patient, Patrick Jordan, was admitted to IMU Room 207-01. Patient/family oriented to hospital policies and general routines including ID bracelet, bed and alarms, visiting hours, pain management, procedures, bathroom and other care routines, personal items, smoking policy, room service/diet, and visiting hours. Information on how to activate the Rapid Response Team has been discussed. Patient/Family are encouraged to report perceived risks to care and to ask questions if they do not understand what they are told or what they should do.
--- NOTE | 2022-11-09 19:29 | PM.IMHP ---
H&P: HPI History of Present Illness Date/Time: 11/09/22 19:29 Chief Complaint: Altered mental status Narrative: This is a 57-year-old male patient who has a history of alcoholism. He recently had some weight loss with altered mental status today. His domestic partner was at his bedside earlier and stated that the patient drinks. Daily. He has had a increase weight loss over the past year and only drinks beer. The domestic partner reported that last night he was out riding his bike and got lost and in the being brought home by the police. H&H is 13.2 and 37.2 with white count 3.5. His potassium was found to be 2.9. Sodium 133. Chest abdomen pelvis CT was read as the following 1.Centrilobular nodules in lingula and right upper lobe, likely mild infection. 2. Bilateral inguinal hernias containing fat. Head CT was read as old infarct and right temporal occipital region. The patient was given thiamin IV fluids potassium Rocephin and azithromycin. The patient is being admitted to observation status on the date of service of 11/09/2022 Review of Systems Review of Systems: All systems reviewed & are unremarkable except as noted in HPI and below Constitutional: Constitutional: Reports as per HPI and Reports no additional constitutional complaints Eyes: Eyes: Reports as per HPI and Reports no additional eye complaints ENT: Reports system reviewed and no additional complaints, except as documented and Reports Normal hearing present Cardiovascular: Cardiovascular: Reports no additional cardiovascular complaints Respiratory: Respiratory: Reports no additional respiratory complaints and Reports no additional respiratory complaints Gastrointestinal: Gastrointestinal: Reports as per HPI and Reports no additional gastrointestinal complaints Musculoskeletal: Musculoskeletal: Reports no additional musculoskeletal complaints Integumentary/Breasts: Skin/Breast: Reports system reviewed and no additional complaints, except as docu and Reports as per HPI Neurologic: Reports system reviewed and no additional complaints, except as documented, Reports as per HPI and Reports Normal hearing present Psychiatric: Psychiatric: Reports no additional psychiatric complaints and Reports as per HPI Endocrine: Endocrine: Reports no additional endocrine complaints Hematologic/Lymphatic: Hematologic/Lymphatic: Reports no additional hematologic/lymphatic complaints Allergic/Immunologic: Allergic/Immunologic: Reports no additional allergic/immunologic complaints [facility] Past Medical History Medical History (Updated 11/10/22 @ 01:04 by Zara Martini NP) Alcoholic cardiomyopathy Diagnosised at [place] years ago. Now followed by Dr. Pacheco. Alcoholic fatty liver Atrial fibrillation Deemed to not be a candidate for anticoagulation. CVA (cerebral vascular accident) As per CT of the head today on 11/09/2022 old infarct and right temporo-occipital region Hypertension Mild pulmonary hypertension Nicotine dependence Surgical History Surgical History History of open reduction and internal fixation (ORIF) procedure Repair of right ankle fracture. History of ventral hernia repair (01/2007) Family History Family History Father Hypertension High cholesterol Diabetes mellitus Malignant neoplasm of prostate Mother Breast cancer Liver cancer Social History Social History (Updated 11/10/22 @ 00:59 by Zara Martini NP) Social History: He stated that he was down to 20-30 beers a day. Surrogate medical decision maker: Indira Davies, domestic partner. Code status: Full code. Smoking packs per day: 1 Smoking cigarettes per day: 20.0 Years smoked: 15 Smoking pack-years: 15.00 Smoking status: Former smoker Tobacco type: cigarettes Smoking end date: 03/24/82 Alcohol intake: current Drinks per week: 140 Alcohol use de
[2022-11-10] VITALS (29 sets, daily range): BP systolic 137–163; BP diastolic 73–106; PULSE 57–118; RESP 16–24; TEMP 36.3–36.9; O2SAT 89–100
[2022-11-10 00:34] LABS: Glucose Point of Care 98 mg/dl (65-105)
[2022-11-10] MEDS: chlordiazePOXIDE (*CRX) 25 MG CAPSULE PO ×5 (01:17→23:28)
[2022-11-10] MEDS: ALBUTEROL SULFATE NEB 2.5 MG/3 ML INH INHALATION ×4 (02:45→19:42)
[2022-11-10 06:16] LABS: Basophils Percent Auto 0.5 % (0.2-1.2); Eosinophils Percent Auto 0.9 % (0-4.4); Hematocrit 34.2 % (42.0-52.0); Hemoglobin 11.8 g/dL (14.0-18.0); Immature Granulocyte Absolute 0.02 K/mm3 (0.00-0.031); Immature Granulocyte Percent A 0.5 % (0-0.5); Lymphocytes Absolute Auto 0.92 K/mm3 (0.9-3.2); Lymphocytes Percent Auto 21.3 % (18.3-44.2); Mean Corpuscular HGB Conc 34.5 g/dl (32-36); Mean Corpuscular Volume 107.2 fl (80-100); Mean Platelet Volume 8.8 fl (7.4-10.4); Monocytes Absolute Auto 0.4 K/mm3 (0.1-0.6); Neutrophils Absolute Auto 2.9 K/mm3 (1.3-6.7); Neutrophils Percent Auto 67.8 % (45.5-73.1); Platelet Count Result 143 k/mm3 (150-375); Red Blood Count 3.19 M/mm3 (4.6-6.20); Red Cell Distribution Width 11.5 % (11.5-14.5); White Blood Count 4.3 K/mm3 (4.5-10.0)
[2022-11-10 06:45] LABS: Alanine Aminotransferase 34 U/L (6-50); Albumin Level 3.4 g/dL (3.5-5.1); Alkaline Phosphatase 72 U/L (38-126); Anion Gap 7 mmol/L (8-16); Aspartate Amino Transferase 46 U/L (17-59); Bilirubin,Total 0.7 mg/dL (0.2-1.3); Blood Urea Nitrogen 7 mg/dL (9-20); Calcium 8.4 mg/dL (8.4-10.2); Carbon Dioxide 33 mmol/L (22-30); Chloride 91 mmol/L (98-107); Estimated CRCL calculation 110 ml/min; Estimated Glomerular Filt Rate > 60; Glucose 126 mg/dL (65-110); Magnesium 1.5 mg/dL (1.6-2.3); Potassium 2.8 mmol/L (3.4-5.0); Sodium 131 mmol/L (137-145)
[2022-11-10] MEDS: IPRATROPIUM BR 0.02% INH SOLN 0.5 MG/2.5 ML VIAL INHALATION (09:04)
--- NOTE | 2022-11-10 09:21 | PM.IMPN ---
Progress Note: A&P Assessment and Plan (1) Pneumonia: Code(s): J18.9 - Pneumonia, unspecified organism Status: Acute Assessment and Plan: The patient was started on azithromycin and Rocephin as per antibiotic stewardship for community-acquired pneumonia. Sputum and blood cultures are pending. Continue with nebulizer treatments. (2) Alcohol withdrawal: Code(s): F10.939 - Alcohol use, unspecified with withdrawal, unspecified Status: Acute Assessment and Plan: Patient still has anxiety, controlled tremor Evaluation and treatment per [facility] protocol. (3) Hypertension: Qualifiers: Hypertension type: unspecified Qualified Code(s): I10 - Essential (primary) hypertension Code(s): I10 - Essential (primary) hypertension Status: Acute Assessment and Plan: Continue with losartan and metoprolol. (4) Paroxysmal atrial fibrillation: Code(s): I48.0 - Paroxysmal atrial fibrillation Status: Acute Assessment and Plan: Continue with metoprolol. The patient was deemed inappropriate for anticoagulation therapy due to his alcohol abuse. Now patient has sinus rhythm (5) GERD (gastroesophageal reflux disease): Code(s): K21.9 - Gastro-esophageal reflux disease without esophagitis Status: Acute Assessment and Plan: Continue with pantoprazole (6) Hyponatremia: Code(s): E87.1 - Hypo-osmolality and hyponatremia Status: Acute (7) Hypokalemia: Code(s): E87.6 - Hypokalemia Status: Acute (8) Hypomagnesemia: Code(s): E83.42 - Hypomagnesemia Status: Acute Assessment and Plan: Hypomagnesemia, hyponatremia, hypokalemia Likely secondary to be adequate intake of electrolyte and dehydration Replaced with both IV and p.o. potassium chloride, magnesium sulfate 2 g IV, Continue normal saline IV Follow-up BMP Subjective Date/time seen: 11/10/22 09:21 Interval history: I saw exam patient today, patient still has hand tremor, patient denies visual hallucination, headache, nausea vomiting. Patient has cough with scant phlegm. No new issue even overnight Exam Narrative: GENERAL: Pleasant, in no acute distress. Well-nourished. - EYES: EOMI. Anicteric. - HENT: Moist mucous membranes. - LUNGS: Clear to auscultation bilaterally, no wheezing, rhonchi, or rales. - CARDIOVASCULAR: Regular rate and rhythm. No murmur. No JVD. - ABDOMEN: Soft, non-tender and non-distended. No palpable masses. - EXTREMITIES: No edema. Peripheral pulses 2+. Non-tender. - NEUROLOGIC: No focal neurological deficits. CN II-XII grossly intact. - PSYCHIATRIC: Awake, Alert and oriented x 3. Appropriate mood and affect. - SKIN: No rashes or lesions. Warm. - LYMPH: No cervical lymphadenopathy. Objective Data Vital Signs Vital Signs: Vital Signs - 24 hr 11/09/22 09:50 11/09/22 12:47 11/09/22 13:01 Temperature 97.2 F L Pulse Rate 75 82 80 Pulse Rate [Monitor] Respiratory Rate 16 17 15 Blood Pressure 159/102 H Pulse Oximetry 97 Oxygen Delivery Room Air 11/09/22 13:15 11/09/22 13:41 11/09/22 13:42 Temperature Pulse Rate 76 79 77 Pulse Rate [Monitor] Respiratory Rate 19 15 22 H Blood Pressure 150/97 H Pulse Oximetry Oxygen Delivery 11/09/22 13:45 11/09/22 13:46 11/09/22 14:00 Temperature Pulse Rate 76 78 81 Pulse Rate [Monitor] Respiratory Rate 18 21 H 20 Blood Pressure 164/118 H Pulse Oximetry Oxygen Delivery 11/09/22 14:01 11/09/22 14:15 11/09/22 14:16 Temperature Pulse Rate 79 83 75 Pulse Rate [Monitor] Respiratory Rate 18 24 H 20 Blood Pressure 144/121 H 157/104 H Pulse Oximetry Oxygen Delivery 11/09/22 14:30 11/09/22 14:32 11/09/22 14:45 Temperature Pulse Rate 75 72 76 Pulse Rate [Monitor] Respiratory Rate 20 14 23 H Blood Pressure 95/65 L Pulse Oximetry Oxygen Delivery 11/09/22 15:00 11/09/22 15:15 11/09/22
[2022-11-10] MEDS: LOSARTAN POTASSIUM 25 MG TABLET PO (09:35)
[2022-11-10] MEDS: METOPROLOL SUCCINATE EXT REL 100 MG TABCR PO (09:35)
[2022-11-10] MEDS: PANTOPRAZOLE 40 MG TABLET PO (09:36)
[2022-11-10] MEDS: POTASSIUM CHLORIDE INJ 40 MEQ in SODIUM CHLORIDE 0.9% IV 500 ML 130 MEQ IVPB (09:37)
[2022-11-10] MEDS: MAGNESIUM SULF 2 GM/WATER 50ML 2 GM/50 ML BAG IVPB (09:37)
[2022-11-10] MEDS: MULTIVITAMINS /C LUTEIN (CENTRUM SILVER) TABLET *BKC 1 TAB PO (09:37)
[2022-11-10] MEDS: POTASSIUM CHLORIDE 20 MEQ ER TABLET 40 MEQ PO (09:37)
[2022-11-10 11:49] LABS: Glucose Point of Care 126 mg/dl (65-105)
[2022-11-10] MEDS: AZITHROMYCIN 500 MG/NS 250 ML 500 MG/250 ML BAG 250 MG IVPB (16:05)
[2022-11-10 18:40] LABS: Glucose Point of Care 113 mg/dl (65-105)
[2022-11-10] MEDS: HYDROCORTISONE 1% 30 GM CREAM 1 APPLIC TOPICAL (19:59)
[2022-11-10 23:48] LABS: Glucose Point of Care 150 mg/dl (65-105)
[2022-11-11] VITALS (24 sets, daily range): BP systolic 129–161; BP diastolic 76–109; PULSE 67–101; RESP 12–20; TEMP 36.1–37.1; O2SAT 93–100
[2022-11-11] MEDS: LORazepam INJ (*CRX) 2 MG/ML VIAL IV PUSH (00:22)
[2022-11-11] MEDS: ALBUTEROL SULFATE NEB 2.5 MG/3 ML INH INHALATION ×4 (01:18→20:50)
[2022-11-11] MEDS: chlordiazePOXIDE (*CRX) 25 MG CAPSULE PO (02:18)
[2022-11-11] MEDS: chlordiazePOXIDE (*CRX) 25 MG CAPSULE 50 MG PO ×4 (05:31→23:39)
[2022-11-11 09:59] LABS: Basophils Percent Auto 0.3 % (0.2-1.2); Eosinophils Percent Auto 0.3 % (0-4.4); Hematocrit 35.6 % (42.0-52.0); Hemoglobin 12.3 g/dL (14.0-18.0); Immature Granulocyte Absolute 0.01 K/mm3 (0.00-0.031); Immature Granulocyte Percent A 0.2 % (0-0.5); Immature Platelet Fraction Pct 2.6 % (0.9-11.2); Lymphocytes Absolute Auto 0.82 K/mm3 (0.9-3.2); Lymphocytes Percent Auto 13.1 % (18.3-44.2); Mean Corpuscular HGB Conc 34.6 g/dl (32-36); Mean Corpuscular Hemoglobin 37.3 pg (26-34); Mean Corpuscular Volume 107.9 fl (80-100); Monocytes Absolute Auto 0.6 K/mm3 (0.1-0.6); Monocytes Percent Auto 9.1 % (2.6-8.5); Neutrophils Absolute Auto 4.8 K/mm3 (1.3-6.7); Platelet Count Result 149 k/mm3 (150-375); Red Cell Distribution Width 11.7 % (11.5-14.5); White Blood Count 6.3 K/mm3 (4.5-10.0)
[2022-11-11] MEDS: PANTOPRAZOLE 40 MG TABLET PO (10:04)
[2022-11-11] MEDS: MULTIVITAMINS /C LUTEIN (CENTRUM SILVER) TABLET *BKC 1 TAB PO (10:04)
[2022-11-11] MEDS: LOSARTAN POTASSIUM 25 MG TABLET PO (10:04)
[2022-11-11] MEDS: METOPROLOL SUCCINATE EXT REL 100 MG TABCR PO (10:05)
[2022-11-11] MEDS: HYDROCORTISONE 1% 30 GM CREAM 1 APPLIC TOPICAL (10:06)
[2022-11-11 10:09] LABS: Alanine Aminotransferase 30 U/L (6-50); Albumin Level 3.4 g/dL (3.5-5.1); Alkaline Phosphatase 71 U/L (38-126); Anion Gap 4 mmol/L (8-16); Aspartate Amino Transferase 43 U/L (17-59); Bilirubin,Total 1.1 mg/dL (0.2-1.3); Blood Urea Nitrogen 5 mg/dL (9-20); Calcium 8.6 mg/dL (8.4-10.2); Carbon Dioxide 35 mmol/L (22-30); Chloride 89 mmol/L (98-107); Estimated CRCL calculation 110 ml/min; Estimated Glomerular Filt Rate > 60; Glucose 100 mg/dL (65-110); Potassium 4.1 mmol/L (3.4-5.0); Sodium 128 mmol/L (137-145)
--- NOTE | 2022-11-11 11:35 | ECG_ITS ---
Measurements Intervals [place] Rate: 75 P: FL: 0 QRS: 12 QRSD: 105 T: 17 QT: 382 QTc: 429 Interpretive Statements ATRIAL FIBRILLATION INCOMPLETE RIGHT BUNDLE BRANCH BLOCK [90+ ms QRS DURATION, TERMINAL R IN V1/V2, 40+ ms S IN I/aVL/V4/V5/V6] PREVIOUS aNTERIOR MYOCARDIAL INFARCTION ABNORMAL ECG NO PREVIOUS ECG AVAILABLE FOR COMPARISON Electronically Signed On 11-11-2022 12:10:16 CDT by Blake Pacheco M.D.
--- NOTE | 2022-11-11 14:45 | PM.IMPN ---
Progress Note: A&P Assessment and Plan (1) Pneumonia: Code(s): J18.9 - Pneumonia, unspecified organism Status: Acute Assessment and Plan: The patient was started on azithromycin and Rocephin as per antibiotic stewardship for community-acquired pneumonia. Sputum and blood cultures are pending. Continue with nebulizer treatments. (2) Alcohol withdrawal: Code(s): F10.939 - Alcohol use, unspecified with withdrawal, unspecified Status: Acute Assessment and Plan: Patient still has anxiety, controlled tremor Evaluation and treatment per [facility] protocol. (3) Hypertension: Qualifiers: Hypertension type: unspecified Qualified Code(s): I10 - Essential (primary) hypertension Code(s): I10 - Essential (primary) hypertension Status: Acute Assessment and Plan: Continue with losartan and metoprolol. (4) Paroxysmal atrial fibrillation: Code(s): I48.0 - Paroxysmal atrial fibrillation Status: Acute Assessment and Plan: Continue with metoprolol. The patient was deemed inappropriate for anticoagulation therapy due to his alcohol abuse. Now patient has sinus rhythm (5) GERD (gastroesophageal reflux disease): Code(s): K21.9 - Gastro-esophageal reflux disease without esophagitis Status: Acute Assessment and Plan: Continue with pantoprazole (6) Hyponatremia: Code(s): E87.1 - Hypo-osmolality and hyponatremia Status: Acute Assessment and Plan: Likely secondary to inadequate intake of of electrolyte, alcohol abuse (7) Hypokalemia: Code(s): E87.6 - Hypokalemia Status: Acute (8) Hypomagnesemia: Code(s): E83.42 - Hypomagnesemia Status: Acute Assessment and Plan: Hypomagnesemia, hyponatremia, hypokalemia Likely secondary to be adequate intake of electrolyte and dehydration Replaced with both IV and p.o. potassium chloride, magnesium sulfate 2 g IV, Received normal saline IV Sodium 128 Start sodium chloride 2 g p.o. once, twice a day Follow-up BMP tomorrow Plan Patient may benefit from detox program at discharge. Patient may be discharged home tomorrow if electrolyte disorder are corrected, patient is on waiting list to detox program Subjective Date/time seen: 11/11/22 14:45 Interval history: I saw exam patient today, patient still has hand tremor, some anxiety. Patient denies visual hallucination, headache, nausea vomiting. Patient has cough with scant phlegm. No new issue even overnight Exam Narrative: GENERAL: Pleasant, in no acute distress. Well-nourished. - EYES: EOMI. Anicteric. - HENT: Moist mucous membranes. - LUNGS: Clear to auscultation bilaterally, no wheezing, rhonchi, or rales. - CARDIOVASCULAR: Regular rate and rhythm. No murmur. No JVD. - ABDOMEN: Soft, non-tender and non-distended. No palpable masses. - EXTREMITIES: No edema. Peripheral pulses 2+. Non-tender. - NEUROLOGIC: No focal neurological deficits. CN II-XII grossly intact. - PSYCHIATRIC: Awake, Alert and oriented x 3. Appropriate mood and affect. - SKIN: No rashes or lesions. Warm. - LYMPH: No cervical lymphadenopathy. Objective Data Vital Signs Vital Signs: Vital Signs - 24 hr 11/10/22 16:00 11/10/22 17:07 11/10/22 16:00 Temperature 97.4 F L Pulse Rate 78 Pulse Rate [Bilateral Pedal (Dorsalis Pedis) Palpation] Pulse Rate [Monitor] 78 Respiratory Rate 20 Blood Pressure 159/87 H 159/87 H Pulse Oximetry 97 Oxygen Delivery Room Air Oxygen Flow Rate 11/10/22 16:00 11/10/22 18:00 11/10/22 19:42 Temperature Pulse Rate 74 82 80 Pulse Rate [Bilateral Pedal (Dorsalis Pedis) Palpation] Pulse Rate [Monitor] Respiratory Rate 18 Blood Pressure Pulse Oximetry Oxygen Delivery Oxygen Flow Rate 11/10/22 19:52 11/10/22 20:00 11/10/22 19:52 Temperature 98.4 F Pulse Rate 83 85 Pulse Rate [Bilateral Pedal (Dorsalis Pedis) Palpation]
--- NOTE | 2022-11-11 15:15 | PC.NURSE ---
This patient, Patrick Jordan, was transferred to [[id number] ] on 11/11/22 at 1515. Personal belongings sent with patient. Report given to [ Dulce MODI]. Appropriate documentation sent with patient.
--- NOTE | 2022-11-11 18:02 | PC.NURSE ---
Pt arrived to the unit after transfer from IMU. Pt has expressed no needs and denies any pain. Pt was overheard speaking to friend on the phone about bringing up some edibles. Charge nurse notified to monitor pt and visitors tomorrow. Will continue to monitor pt.
[2022-11-11] MEDS: AZITHROMYCIN 500 MG/NS 250 ML 500 MG/250 ML BAG 250 MG IVPB (18:17)
[2022-11-11] MEDS: SODIUM CHLORIDE 1 GM TABLET 2 GM PO (18:30)
[2022-11-12] VITALS (21 sets, daily range): BP systolic 134–159; BP diastolic 92–99; PULSE 0–105; RESP 14–18; TEMP 36.1–37.4; O2SAT 92–98
[2022-11-12] MEDS: ALBUTEROL SULFATE NEB 2.5 MG/3 ML INH INHALATION ×3 (01:47→14:08)
[2022-11-12] MEDS: chlordiazePOXIDE (*CRX) 25 MG CAPSULE 50 MG PO ×4 (05:34→23:55)
[2022-11-12] MEDS: IPRATROPIUM BR 0.02% INH SOLN 0.5 MG/2.5 ML VIAL INHALATION (05:50)
[2022-11-12 06:22] LABS: Basophils Percent Auto 0.6 % (0.2-1.2); Eosinophils Absolute Auto 0.1 K/mm3 (0-0.3); Hematocrit 34.9 % (42.0-52.0); Hemoglobin 11.9 g/dL (14.0-18.0); Immature Granulocyte Absolute 0.02 K/mm3 (0.00-0.031); Immature Granulocyte Percent A 0.4 % (0-0.5); Immature Platelet Fraction Pct 4.3 % (0.9-11.2); Lymphocytes Absolute Auto 0.84 K/mm3 (0.9-3.2); Lymphocytes Percent Auto 16.3 % (18.3-44.2); Mean Corpuscular HGB Conc 34.1 g/dl (32-36); Mean Corpuscular Hemoglobin 36.8 pg (26-34); Mean Platelet Volume 9.4 fl (7.4-10.4); Monocytes Absolute Auto 0.4 K/mm3 (0.1-0.6); Monocytes Percent Auto 7.8 % (2.6-8.5); Neutrophils Absolute Auto 3.8 K/mm3 (1.3-6.7); Neutrophils Percent Auto 73.9 % (45.5-73.1); Platelet Count Result 134 k/mm3 (150-375); Red Blood Count 3.23 M/mm3 (4.6-6.20); Red Cell Distribution Width 11.5 % (11.5-14.5); White Blood Count 5.1 K/mm3 (4.5-10.0)
[2022-11-12] MEDS: SODIUM CHLORIDE 1 GM TABLET 2 GM PO ×2 (09:09→18:19)
[2022-11-12] MEDS: METOPROLOL SUCCINATE EXT REL 100 MG TABCR PO (09:09)
[2022-11-12] MEDS: PANTOPRAZOLE 40 MG TABLET PO (09:09)
[2022-11-12] MEDS: LOSARTAN POTASSIUM 25 MG TABLET PO (09:09)
[2022-11-12] MEDS: MULTIVITAMINS /C LUTEIN (CENTRUM SILVER) TABLET *BKC 1 TAB PO (09:10)
--- NOTE | 2022-11-12 13:31 | PM.IMPN ---
Progress Note: A&P Assessment and Plan (1) Pneumonia: Code(s): J18.9 - Pneumonia, unspecified organism Status: Acute Assessment and Plan: The patient was started on azithromycin and Rocephin as per antibiotic stewardship for community-acquired pneumonia. Sputum and blood cultures are pending. Continue with nebulizer treatments. (2) Alcohol withdrawal: Code(s): F10.939 - Alcohol use, unspecified with withdrawal, unspecified Status: Acute Assessment and Plan: Patient still has anxiety, controlled tremor Evaluation and treatment per [facility] protocol. (3) Hypertension: Qualifiers: Hypertension type: unspecified Qualified Code(s): I10 - Essential (primary) hypertension Code(s): I10 - Essential (primary) hypertension Status: Acute Assessment and Plan: Continue with losartan and metoprolol. (4) Paroxysmal atrial fibrillation: Code(s): I48.0 - Paroxysmal atrial fibrillation Status: Acute Assessment and Plan: Continue with metoprolol. The patient was deemed inappropriate for anticoagulation therapy due to his alcohol abuse. Now patient has sinus rhythm (5) GERD (gastroesophageal reflux disease): Code(s): K21.9 - Gastro-esophageal reflux disease without esophagitis Status: Acute Assessment and Plan: Continue with pantoprazole (6) Hyponatremia: Code(s): E87.1 - Hypo-osmolality and hyponatremia Status: Acute Assessment and Plan: Likely secondary to inadequate intake of of electrolyte, alcohol abuse (7) Hypokalemia: Code(s): E87.6 - Hypokalemia Status: Acute (8) Hypomagnesemia: Code(s): E83.42 - Hypomagnesemia Status: Acute Assessment and Plan: Hypomagnesemia, hyponatremia, hypokalemia Likely secondary to be adequate intake of electrolyte and dehydration Replaced with both IV and p.o. potassium chloride, magnesium sulfate 2 g IV, Received normal saline IV Sodium 128 Start sodium chloride 2 g p.o. once, twice a day Follow-up BMP tomorrow Plan Patient may benefit from rehab prog plan dc tomorrow Subjective Date/time seen: 11/12/22 13:31 Interval history: Pt slowly improving ongoing shaking and tremors and mild cough Admitted for pneumonia/ h/o of alcoholism wants to quit ready for rehab placement Review of Systems Review of Systems: cough and shakes Exam Narrative: GENERAL: Pleasant, in no acute distress. Well-nourished. - EYES: EOMI. Anicteric. - HENT: Moist mucous membranes. - LUNGS: Clear to auscultation bilaterally, no wheezing, rhonchi, or rales. - CARDIOVASCULAR: Regular rate and rhythm. No murmur. No JVD. - ABDOMEN: Soft, non-tender and non-distended. No palpable masses. - EXTREMITIES: No edema. Peripheral pulses 2+. Non-tender. - NEUROLOGIC: No focal neurological deficits. CN II-XII grossly intact. - PSYCHIATRIC: Awake, Alert and oriented x 3. Appropriate mood and affect. - SKIN: No rashes or lesions. Warm. - LYMPH: No cervical lymphadenopathy. Objective Data Vital Signs Vital Signs: Vital Signs - 24 hr 11/11/22 13:52 11/11/22 14:08 11/11/22 14:13 Temperature Pulse Rate 81 90 Pulse Rate [Bilateral Pedal (Dorsalis Pedis) Palpation] 90 Pulse Rate [Monitor] 90 Respiratory Rate 18 12 Blood Pressure 139/95 H 139/95 H Pulse Oximetry 98 Oxygen Delivery Fraction of Inspired Oxygen 11/11/22 16:00 11/11/22 16:02 11/11/22 20:56 Temperature 37.1 C Pulse Rate 87 86 95 Pulse Rate [Bilateral Pedal (Dorsalis Pedis) Palpation] Pulse Rate [Monitor] Respiratory Rate 16 18 Blood Pressure 136/98 H Pulse Oximetry 95 Oxygen Delivery Fraction of Inspired Oxygen 11/11/22 23:13 11/11/22 20:00 11/11/22 20:27 Temperature 36.1 C L Pulse Rate 95 67 Pulse Rate [Bilateral Pedal (Dorsalis Pedis) Palpation] Pulse Rate [Monitor] Respiratory Rate 18 16 Blood Pressure 129/88 Pulse
[2022-11-12 14:30] LABS: Glucose Point of Care 100 mg/dl (65-105)
[2022-11-12] MEDS: AZITHROMYCIN 500 MG/NS 250 ML 500 MG/250 ML BAG 250 MG IVPB (16:54)
[2022-11-13] VITALS (14 sets, daily range): BP systolic 127–169; BP diastolic 88–114; PULSE 72–93; RESP 14–18; TEMP 36.1–36.9; O2SAT 92–100
[2022-11-13] MEDS: ALBUTEROL SULFATE NEB 2.5 MG/3 ML INH INHALATION ×4 (01:58→20:30)
[2022-11-13 06:59] LABS: Basophils Percent Auto 0.5 % (0.2-1.2); Eosinophils Absolute Auto 0.1 K/mm3 (0-0.3); Eosinophils Percent Auto 1.4 % (0-4.4); Immature Granulocyte Absolute 0.01 K/mm3 (0.00-0.031); Immature Granulocyte Percent A 0.2 % (0-0.5); Lymphocytes Absolute Auto 0.67 K/mm3 (0.9-3.2); Lymphocytes Percent Auto 15.8 % (18.3-44.2); Mean Corpuscular HGB Conc 33.3 g/dl (32-36); Mean Corpuscular Hemoglobin 36.3 pg (26-34); Mean Corpuscular Volume 108.9 fl (80-100); Mean Platelet Volume 10.1 fl (7.4-10.4); Monocytes Absolute Auto 0.4 K/mm3 (0.1-0.6); Monocytes Percent Auto 9.2 % (2.6-8.5); Neutrophils Absolute Auto 3.1 K/mm3 (1.3-6.7); Neutrophils Percent Auto 72.9 % (45.5-73.1); Platelet Count Result 123 k/mm3 (150-375); Red Blood Count 3.03 M/mm3 (4.6-6.20); Red Cell Distribution Width 11.9 % (11.5-14.5); White Blood Count 4.2 K/mm3 (4.5-10.0)
[2022-11-13 07:12] LABS: Anion Gap 6 mmol/L (8-16); Blood Urea Nitrogen 8 mg/dL (9-20); Calcium 8.5 mg/dL (8.4-10.2); Carbon Dioxide 28 mmol/L (22-30); Chloride 92 mmol/L (98-107); Estimated CRCL calculation 110 ml/min; Estimated Glomerular Filt Rate > 60; Glucose 93 mg/dL (65-110); Potassium 3.7 mmol/L (3.4-5.0); Sodium 126 mmol/L (137-145)
[2022-11-13] MEDS: chlordiazePOXIDE (*CRX) 25 MG CAPSULE 50 MG PO ×4 (08:34→23:55)
[2022-11-13] MEDS: METOPROLOL SUCCINATE EXT REL 100 MG TABCR PO (08:34)
[2022-11-13] MEDS: SODIUM CHLORIDE 1 GM TABLET 2 GM PO ×2 (08:34→16:20)
[2022-11-13] MEDS: MULTIVITAMINS /C LUTEIN (CENTRUM SILVER) TABLET *BKC 1 TAB PO (08:39)
[2022-11-13] MEDS: LOSARTAN POTASSIUM 25 MG TABLET PO (08:39)
[2022-11-13] MEDS: PANTOPRAZOLE 40 MG TABLET PO (08:39)
--- NOTE | 2022-11-13 13:29 | PM.IMPN ---
Progress Note: A&P Assessment and Plan (1) Pneumonia: Code(s): J18.9 - Pneumonia, unspecified organism Status: Acute Assessment and Plan: The patient was started on azithromycin and Rocephin as per antibiotic stewardship for community-acquired pneumonia. Sputum and blood cultures are pending. Continue with nebulizer treatments. (2) Alcohol withdrawal: Code(s): F10.939 - Alcohol use, unspecified with withdrawal, unspecified Status: Acute Assessment and Plan: Patient still has anxiety, controlled tremor Evaluation and treatment per [facility] protocol. (3) Hypertension: Qualifiers: Hypertension type: unspecified Qualified Code(s): I10 - Essential (primary) hypertension Code(s): I10 - Essential (primary) hypertension Status: Acute Assessment and Plan: Continue with losartan and metoprolol. (4) Paroxysmal atrial fibrillation: Code(s): I48.0 - Paroxysmal atrial fibrillation Status: Acute Assessment and Plan: Continue with metoprolol. The patient was deemed inappropriate for anticoagulation therapy due to his alcohol abuse. Now patient has sinus rhythm (5) GERD (gastroesophageal reflux disease): Code(s): K21.9 - Gastro-esophageal reflux disease without esophagitis Status: Acute Assessment and Plan: Continue with pantoprazole (6) Hyponatremia: Code(s): E87.1 - Hypo-osmolality and hyponatremia Status: Acute Assessment and Plan: Likely secondary to inadequate intake of of electrolyte, alcohol abuse (7) Hypokalemia: Code(s): E87.6 - Hypokalemia Status: Acute (8) Hypomagnesemia: Code(s): E83.42 - Hypomagnesemia Status: Acute Assessment and Plan: Hypomagnesemia, hyponatremia, hypokalemia Likely secondary to be adequate intake of electrolyte and dehydration Replaced with both IV and p.o. potassium chloride, magnesium sulfate 2 g IV, Received normal saline IV Sodium 128 Start sodium chloride 2 g p.o. once, twice a day Follow-up BMP tomorrow dc tomorrow Plan Patient may benefit from rehab prog plan dc tomorrow Subjective Date/time seen: 11/13/22 13:29 Interval history: Pt slowly improving ongoing shaking and tremors and mild cough Admitted for pneumonia/ h/o of alcoholism wants to quit ready for rehab placement Long discussion with partner who states she cannot look after him and wants him transferred to [facility] facility I told her it is difficult continue present care here and DC tomorrow back home Review of Systems Review of Systems: some shaking All systems reviewed & are unremarkable except as noted in HPI and below Exam Narrative: GENERAL: Pleasant, in no acute distress. Well-nourished. - EYES: EOMI. Anicteric. - HENT: Moist mucous membranes. - LUNGS: Clear to auscultation bilaterally, no wheezing, rhonchi, or rales. - CARDIOVASCULAR: Regular rate and rhythm. No murmur. No JVD. - ABDOMEN: Soft, non-tender and non-distended. No palpable masses. - EXTREMITIES: No edema. Peripheral pulses 2+. Non-tender. - NEUROLOGIC: No focal neurological deficits. CN II-XII grossly intact. - PSYCHIATRIC: Awake, Alert and oriented x 3. Appropriate mood and affect. - SKIN: No rashes or lesions. Warm. - LYMPH: No cervical lymphadenopathy. Objective Data Vital Signs Vital Signs: Vital Signs - 24 hr 11/12/22 14:00 11/12/22 14:10 11/12/22 14:22 Temperature 37.4 C Pulse Rate 71 83 80 Respiratory Rate 18 16 16 Blood Pressure 134/92 H Pulse Oximetry 98 Oxygen Delivery 11/12/22 16:00 11/12/22 21:49 11/13/22 01:58 Temperature 36.1 C L Pulse Rate 91 96 77 Respiratory Rate 14 16 Blood Pressure 149/97 H Pulse Oximetry 92 Oxygen Delivery 11/13/22 02:08 11/13/22 05:20 11/13/22 07:50 Temperature 36.1 C L Pulse Rate 78 81 Respiratory Rate 16 14 Blood Pressure 132/88 Pulse Oximetry 98 96 Oxygen Deliver
[2022-11-13] MEDS: AZITHROMYCIN 250 MG TABLET 500 MG PO (13:47)
[2022-11-13] MEDS: LORazepam INJ (*CRX) 2 MG/ML VIAL IV PUSH (17:18)
[2022-11-13] MEDS: AMOXICILLIN/CLAVULANATE K 875-125 MG TAB 1 TABLET PO (20:21)
[2022-11-13] MEDS: IPRATROPIUM BR 0.02% INH SOLN 0.5 MG/2.5 ML VIAL INHALATION (20:30)
[2022-11-14] VITALS (9 sets, daily range): BP systolic 142; BP diastolic 92; PULSE 64–100; RESP 14–18; TEMP 36.6; O2SAT 98
[2022-11-14] MEDS: ALBUTEROL SULFATE NEB 2.5 MG/3 ML INH INHALATION ×3 (02:00→13:15)
[2022-11-14] MEDS: chlordiazePOXIDE (*CRX) 25 MG CAPSULE 50 MG PO ×2 (05:48→12:25)
[2022-11-14 06:37] LABS: Anion Gap 2 mmol/L (8-16); Blood Urea Nitrogen 7 mg/dL (9-20); Calcium 8.5 mg/dL (8.4-10.2); Carbon Dioxide 32 mmol/L (22-30); Chloride 92 mmol/L (98-107); Estimated CRCL calculation 96 ml/min; Estimated Glomerular Filt Rate > 60; Glucose 109 mg/dL (65-110); Magnesium 1.6 mg/dL (1.6-2.3); Potassium 3.7 mmol/L (3.4-5.0); Sodium 126 mmol/L (137-145)
[2022-11-14] MEDS: PANTOPRAZOLE 40 MG TABLET PO (08:50)
[2022-11-14] MEDS: LOSARTAN POTASSIUM 25 MG TABLET PO (08:50)
[2022-11-14] MEDS: METOPROLOL SUCCINATE EXT REL 100 MG TABCR PO (08:50)
[2022-11-14] MEDS: AMOXICILLIN/CLAVULANATE K 875-125 MG TAB 1 TABLET PO (08:50)
[2022-11-14] MEDS: MULTIVITAMINS /C LUTEIN (CENTRUM SILVER) TABLET *BKC 1 TAB PO (08:50)
[2022-11-14] MEDS: SODIUM CHLORIDE 1 GM TABLET 2 GM PO (08:50)
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
== END 2022-11-14 14:15 | disposition home or self-care (01) | DRG 139 ==
LOC: ANHED 12:00 → ANHIMU 15:33 → ANH3MEDSUR 11-11 15:46
PROVIDERS: Nurse Practitioner; Admitting Provider Hospitalist; Emergency Provider Emergency Medicine; PCP Family Medicine Adolescent Medicine; Visit Provider Family Medicine
DX: J18.9 Pneumonia, unspecified organism (principal); E87.1 Hypo-osmolality and hyponatremia; I48.0 Paroxysmal atrial fibrillation; E83.42 Hypomagnesemia; E86.0 Dehydration; F10.239 Alcohol dependence with withdrawal, unspecified; I10 Essential (primary) hypertension; K21.9 Gastro-esophageal reflux disease without esophagitis; F41.9 Anxiety disorder, unspecified; E87.6 Hypokalemia; Z87.891 Personal history of nicotine dependence; Z86.73 Personal history of transient ischemic attack (TIA), and cerebral infarction without residual deficits
CPT/HCPCS: 36415; 70450; 71260; 74177; 80048; 80053; 80307; 81003; 82140; 82948; 83605; 83690; 83735; 84443; 85025; 85055; 85610; 85730; 87040; 87070; 87205; 93005; 94640; 96361; 96365; 96366; 96367; 96368; 96374; 96375; 99285; A9270; G0378; G0379; J0456; J0696; J2060; J3411; J3475; J3480; J7030; J7040; Q9967

== ENCOUNTER 2022-12-03 19:05 | Emergency (ER) | payer OTHER, SELFPAY ==
[2022-12-03 19:09] VITALS: BP 143/93; PULSE 106; RESP 19; TEMP 36.4; O2SAT 100
--- NOTE | 2022-12-03 22:24 | PC.NURSE ---
patient left without being seen. states that he does not have his night meds with him and he needs to get home to take them. advised to return if needed
== END 2022-12-03 22:27 | disposition left against medical advice (07) ==
PROVIDERS: PCP Family Medicine Adolescent Medicine
DX: R06.6 Hiccough (principal)
CPT/HCPCS: 99199